=== PATIENT | female | born 1955 | race African-American/Black ===

== ENCOUNTER 2022-01-26 22:44 | Emergency (ER) | payer OTHER ==
[2022-01-26 23:04] VITALS: BP 93/56; PULSE 77; RESP 18; TEMP 98; BMI 21.2
[2022-01-26] MEDS ORDERED: ACETAMINOPHEN 500 MG TABLET (FP) PO ONE (23:51)
[2022-01-26] MEDS ORDERED: ACETAMINOPHEN 500 MG TABLET (FP) ONE (23:54)
== END 2022-01-27 01:34 | disposition home or self-care (01) ==
LOC: JERFT 22:44
DX: M25.531 Pain in right wrist (principal); M25.561 Pain in right knee
CPT/HCPCS: 73060-TC-RT-FY; 73110-TC-RT-FY; 73130-TC-RT-FY; 73562-TC-RT-FY; 99285-25